=== PATIENT | female | born 1995 | race Caucasian/White ===

== ENCOUNTER 2018-11-15 14:50 | Day surgery (SDC) | payer OTHER ==
[2018-11-15] MEDS ORDERED: CEFAZOLIN 2 GM/50 ML (PMX) 50 ML IVPB (16:30)
[2018-11-15] MEDS ORDERED: LACTATED RINGER'S 1,000 ML IV (16:30)
[2018-11-15] MEDS ORDERED: MIDAZOLAM 1 MG/ML 2 ML INJ (16:59)
[2018-11-15] MEDS ORDERED: PROPOFOL 20 ML (16:59)
[2018-11-15] MEDS ORDERED: CEFAZOLIN 1 GM INJ (16:59)
[2018-11-15] MEDS ORDERED: ROPIVACAINE 0.5 % 30 ML VIAL (17:00)
[2018-11-15] MEDS ORDERED: BUPIVACAINE 0.5% (SDV) 30 ML INJ (17:18)
[2018-11-15] MEDS ORDERED: OXYCODONE/ACETAMINOPHEN (5/325) TAB PO ×2 (17:30)
[2018-11-15] MEDS ORDERED: LABETALOL HCL 20MG INJ IV (17:30)
[2018-11-15] MEDS ORDERED: EPHEDrine SULFATE 50 MG/5 ML SYG IV (17:30)
[2018-11-15] MEDS ORDERED: FENTAnyl 50 MCG/ML VIAL IV ×3 (17:30)
[2018-11-15] MEDS ORDERED: HYDROmorphONE 1 MG/5 ML IV SYRINGE IV ×3 (17:30)
[2018-11-15] MEDS ORDERED: KETOROLAC 30 MG INJ (18:13)
[2018-11-15] MEDS ORDERED: ONDANSETRON 4 MG INJ ×2 (18:13→19:34)
[2018-11-15] MEDS ORDERED: DEXAMETHASONE 4 MG/ML 5 ML INJ (18:13)
[2018-11-15] MEDS ORDERED: METOCLOPRAMIDE 10 MG INJ ×2 (18:13→19:01)
[2018-11-15] MEDS ORDERED: GLYCOPYRROLATE 0.4 MG INJ (18:37)
[2018-11-15] MEDS ORDERED: NEOSTIGMINE 3 MG/3 ML SYRINGE ×2 (18:37)
[2018-11-15] MEDS ORDERED: ROCURONIUM 50 MG INJ (18:37)
[2018-11-15] MEDS: METOCLOPRAMIDE 10 MG INJ IV (19:02)
[2018-11-15] MEDS: ONDANSETRON 4 MG INJ IV (19:37)
== END 2018-11-15 20:25 | disposition home or self-care (01) ==
LOC: SDS 14:50
DX: S62.32 Displaced fracture of shaft of other metacarpal bone (principal); X58.XXXD Exposure to other specified factors, subsequent encounter
CPT/HCPCS: 26615; 73130-LT

== ENCOUNTER 2018-12-27 09:40 | Day surgery (SDC) | payer OTHER ==
[2018-12-27 10:37] LABS: ADD MAN DIFF? NO
[2018-12-27 10:43] LABS: BASOPHIL # 0.1 10^3/ul (0.0-0.1); BASOPHILS % 0.7 % (0.0-2.0); EOSINOPHILS # 0.1 10^3/ul (0.0-0.5); HEMATOCRIT 45.3 % (37.0-47.0); HEMOGLOBIN 14.9 g/dl (12.0-16.0); LYMPHOCYTES # 2.6 10^3/ul (0.8-2.9); LYMPHOCYTES % 37.7 % (15.0-51.0); MEAN CORPUSCULAR HEMOGLOBIN 28.7 pg (29.0-33.0); MEAN CORPUSCULAR HGB CONC 32.9 g/dl (32.0-37.0); MEAN CORPUSCULAR VOLUME 87.1 fl (82.0-101.0); MEAN PLATELET VOLUME 10.1 fl (7.4-10.4); MONOCYTE # 0.3 10^3/ul (0.3-0.9); MONOCYTES % 4.8 % (0.0-11.0); NEUTROPHIL # 3.8 10^3/ul (1.6-7.5); NEUTROPHILS % 55.5 % (39.0-77.0); PLATELET COUNT 257 10^3/UL (140-415); RED CELL DISTRIBUTION WIDTH 11.9 % (11.5-14.5)
[2018-12-27 10:43] LABS: WHITE BLOOD COUNT 6.9 10^3/ul (4.8-10.8)
[2018-12-27] MEDS: LACTATED RINGER'S 1,000 ML IV (10:48)
[2018-12-27 11:00] LABS: ANION GAP 11 (5-13); BLOOD UREA NITROGEN 11 mg/dl (7-20); CALCIUM 9.4 mg/dl (8.4-10.2); CARBON DIOXIDE 26 mmol/L (21-31); CHLORIDE 104 mmol/L (97-110); CREATININE 0.59 mg/dl (0.44-1.00); Estimated GFR > 60 mL/min (>60); GLUCOSE 110 mg/dl (70-220); SODIUM 141 mmol/L (135-144)
[2018-12-27 11:01] LABS: INR 0.92; PROTIME 12.5 Sec (11.9-14.9)
[2018-12-27 11:02] LABS: PARTIAL THROMBOPLASTIN TIME 30.3 Sec (23.0-35.0)
[2018-12-27 11:18] LABS: ADD UMIC YES; UR ASCORBIC ACID NEGATIVE (NEGATIVE); UR BACTERIA FEW /HPF (NONE SEEN); UR BILIRUBIN (Dip) NEGATIVE (NEGATIVE); UR BLOOD (Dip) 1+ mg/dL (NEGATIVE); UR CLARITY SLIGHTLY CLOUDY (CLEAR); UR COLOR YELLOW (YELLOW); UR GLUCOSE (Dip) NEGATIVE (NEGATIVE); UR KETONES (Dip) NEGATIVE (NEGATIVE); UR LEUKOCYTE ESTERASE (Dip) 2+ Leu/ul (NEGATIVE); UR MUCUS MODERATE /HPF (NONE SEEN); UR NITRITE (Dip) NEGATIVE (NEGATIVE); UR RBC 29 /HPF (0-5); UR RENAL EPITHELIAL CELL FEW /HPF (NONE SEEN); UR SQUAMOUS EPITHELIAL CELL FEW /HPF (FEW); UR TOTAL PROTEIN (Dip) NEGATIVE (NEGATIVE); UR UROBILINOGEN (Dip) NEGATIVE (NEGATIVE); UR WBC 32 /HPF (0-5)
[2018-12-27] MEDS ORDERED: LIDOCAINE 2% (SDV) 5 ML INJ (12:28)
[2018-12-27] MEDS ORDERED: PROPOFOL 20 ML (12:28)
[2018-12-27] MEDS: CEFAZOLIN 2 GM/50 ML (PMX) 50 ML IVPB (12:40)
[2018-12-27] MEDS ORDERED: CEFAZOLIN 1 GM INJ (12:56)
[2018-12-27] MEDS: BUPIVACAINE 0.5% (SDV) 30 ML INJ (13:11)
[2018-12-27] MEDS ORDERED: FENTAnyl 50 MCG/ML VIAL IV ×3 (13:30)
[2018-12-27] MEDS ORDERED: hydrALAzine 20 MG INJ IV (13:30)
[2018-12-27] MEDS ORDERED: LABETALOL HCL 20MG INJ IV (13:30)
[2018-12-27] MEDS ORDERED: DIPHENHYDRAMINE 50 MG INJ IV (13:30)
[2018-12-27] MEDS ORDERED: KETOROLAC 30 MG INJ IV (13:30)
[2018-12-27] MEDS ORDERED: MEPERIDINE 25 MG INJ IV (13:30)
[2018-12-27] MEDS ORDERED: EPHEDrine 25 MG/5 ML SYG IV (13:30)
[2018-12-27] MEDS ORDERED: OXYCODONE/ACETAMINOPHEN (5/325) TAB PO ×2 (13:30)
[2018-12-27] MEDS ORDERED: ALBUTEROL 0.083% (NEB) 2.5 MG/3 ML AMP HHN (13:30)
[2018-12-27] MEDS ORDERED: ONDANSETRON 4 MG INJ IV (13:30)
== END 2018-12-27 14:40 | disposition home or self-care (01) ==
LOC: SDS 09:40
DX: Z47.2 Encounter for removal of internal fixation device (principal)
CPT/HCPCS: 26320; 71045; 73130-LT; 80048; 81001; 85025; 85610; 85730; 88300; 93005